=== PATIENT | male | born 1955 | race Caucasian/White ===

== ENCOUNTER 2020-11-20 02:28 | Day surgery (SDC) | payer MEDICARE, SELFPAY ==
[2020-11-13 14:05] VITALS: BMI 29.0
[2020-11-20 09:39] VITALS: BP 135/85; PULSE 67; RESP 18; TEMP 36.3; O2SAT 98; BMI 27.6
[2020-11-20] MEDS: LACTATED RINGERS 1,000 ML 150 ML IV CONT (09:59)
--- NOTE | 2020-11-20 09:59 | WPDANESEPPF ---
Anes - Initial Pre Proc Eval Procedure: Operation Date: 11/20/20 10:30 Proposed Procedures p Screening Colonoscopy - Yamil York MD Date/Time: 11/20/20 09:59 Surgeon: Yamil York MD Pre Op Diagnosis: neoplasm screening Patient Data Age: 64 Gender: M Height: 1.75 m Weight: 84.7 kg Last Vital Signs Temp 36.3 C L 11/20/20 09:39 Pulse 67 11/20/20 09:39 Resp 18 11/20/20 09:39 BP 135/85 11/20/20 09:39 Pulse Ox 98 11/20/20 09:39 Allergies Allergy/AdvReac Type Severity Reaction Status Date / Time No Known Allergies Allergy Verified 11/20/20 09:37 Home Medications Medication Instructions Recorded Confirmed Type sodium,potassium,mag sulfates See Rx Instructions .ROUTE 10/31/20 Rx [Suprep Bowel Prep Kit] .COMPLEX #1 ml allopurinol 300 mg PO DAILY 11/07/20 11/13/20 History ezetimibe 10 mg PO DAILY 11/07/20 11/13/20 History lisinopril 5 mg PO DAILY 11/07/20 11/13/20 History metoprolol succinate 75 mg PO DAILY 11/07/20 11/13/20 History pravastatin 10 mg PO EVERY OTHER DAY 11/07/20 11/13/20 History aspirin [Adult Low Dose Aspirin] 81 mg PO DAILY 11/13/20 11/13/20 History coQ10 (ubiquinol) 100 mg PO DAILY 11/13/20 11/13/20 History lycfhinp-ueo-YZ-lycopen-lutein 1 tablet PO DAILY 11/13/20 11/13/20 History [Centrum Silver Men] potassium chloride 10 meq PO DAILY 11/13/20 11/13/20 History Patient hx anesthesia problems: none Family hx anesthesia problems: none PMFSH Past Medical History Medical History (Updated 11/20/20 @ 10:02 by Jarvis Laughlin MD) CAD (coronary artery disease) HTN (hypertension) Overweight Surgical History Surgical History (Updated 11/20/20 @ 10:02 by Jarvis Laughlin MD) Hx of CABG Family History Family History Sibling Malignant neoplasm of prostate Family history of lung cancer Family history of malignant neoplasm of breast in first degree relative Other Diabetes mellitus Social History Social History Smoking packs per day: 1 Smoking cigarettes per day: 20.0 Years smoked: 15 Smoking pack-years: 15.00 Smoking status: Former smoker Tobacco type: cigarettes Alcohol intake: current Drinks per week: 12 Living arrangements: with family Spiritual care concerns: No Anes - Eval Final PreProcedure Day of Procedure 11/20/20 09:59 Patient weight: overweight Heart: regular rate and rhythm Lungs: clear to auscultation Airway: Mallampati scale class II Neurological: alert and oriented Last oral intake: >/= 8 hours ASA classification: III Emergent: no Anesthetic plan: proceed Anesthesia type and monitoring: general GIVS and standard monitoring Informed Consent: The patient's anesthetic plan and its attendant risks and benefits were discussed with the patient/family/POA. Questions were solicited and answers provided to the satisfaction of the patient/family/POA.
--- NOTE | 2020-11-20 10:05 | PM.HPGS ---
History of Present Illness History of Present Illness Consent: Risks, benefits, and alternatives have been discussed and questions answered. Patient agrees to proceed with procedure. Chief complaint: neoplasm screening Narrative: Elpidio Vasques is a 64 year old male with last colonoscopy 10 years ago Review of Systems Constitutional: Constitutional: Denies headache(s) and Denies weakness Eyes: Eyes: Denies blurry vision ENT: Reports Normal hearing present, Denies headache(s) and Denies neck pain Cardiovascular: Cardiovascular: Denies chest pain and Denies dyspnea Respiratory: Respiratory: Denies dyspnea Gastrointestinal: Gastrointestinal: Reports no additional gastrointestinal complaints Genitourinary: Genitourinary: Denies dysuria Musculoskeletal: Musculoskeletal: Denies neck pain Integumentary/Breasts: Skin/Breast: Denies dry skin Neurologic: Reports Normal hearing present, Denies headache(s) and Denies weakness Psychiatric: Psychiatric: Denies anxiety Endocrine: Endocrine: Denies change in body appearance Hematologic/Lymphatic: Hematologic/Lymphatic: Denies easy bleeding Allergic/Immunologic: Allergic/Immunologic: Denies urticaria PMF Past Medical History Medical History (Updated 11/20/20 @ 10:05 by Yamil York MD) CAD (coronary artery disease) Colon cancer screening HTN (hypertension) Overweight Surgical History Surgical History (Updated 11/20/20 @ 10:02 by Jarvis Laughlin MD) Hx of CABG Family History Family History Sibling Malignant neoplasm of prostate Family history of lung cancer Family history of malignant neoplasm of breast in first degree relative Other Diabetes mellitus Social History Social History Smoking packs per day: 1 Smoking cigarettes per day: 20.0 Years smoked: 15 Smoking pack-years: 15.00 Smoking status: Former smoker Tobacco type: cigarettes Alcohol intake: current Drinks per week: 12 Living arrangements: with family Spiritual care concerns: No Meds Home Medications and Allergies Home Medications Medication Instructions Recorded Confirmed Type sodium,potassium,mag sulfates See Rx Instructions .ROUTE 10/31/20 Rx [Suprep Bowel Prep Kit] .COMPLEX #1 ml allopurinol 300 mg PO DAILY 11/07/20 11/13/20 History ezetimibe 10 mg PO DAILY 11/07/20 11/13/20 History lisinopril 5 mg PO DAILY 11/07/20 11/13/20 History metoprolol succinate 75 mg PO DAILY 11/07/20 11/13/20 History pravastatin 10 mg PO EVERY OTHER DAY 11/07/20 11/13/20 History aspirin [Adult Low Dose Aspirin] 81 mg PO DAILY 11/13/20 11/13/20 History coQ10 (ubiquinol) 100 mg PO DAILY 11/13/20 11/13/20 History eredriwa-mbl-SJ-lycopen-lutein 1 tablet PO DAILY 11/13/20 11/13/20 History [Centrum Silver Men] potassium chloride 10 meq PO DAILY 11/13/20 11/13/20 History Allergies Allergy/AdvReac Type Severity Reaction Status Date / Time No Known Allergies Allergy Verified 11/20/20 09:37 Vital Signs Vital Signs - 24 hr 11/20/20 09:39 Temperature 97.3 F L Pulse Rate 67 Respiratory Rate 18 Blood Pressure 135/85 Pulse Oximetry 98 Exam Const: General: comfortable and no acute distress HENMT: General nose exam: Normal nares present Eyes: General: appearance normal, both eyes and all related structures Neck: Neck: no JVD Resp: Auscultation: clear to auscultation bilaterally Cardio: Rate: regular rate Rhythm: regular rhythm GI: Inspection: non-distended GI Palp: Yes Soft to palpation Skin: General skin exam: normal color Neuro: General: gait normal Speech: normal speech Extrem: General: normal to inspection Psych: Mental Status: mental status grossly normal Assessment and Plan Assessment and plan (1) Colon cancer screening: Code(s): Z12.11 - Encounter for screening for malignant neoplasm of colon Stat
[2020-11-20 10:21] VITALS: BP 88/54; PULSE 63; RESP 16; O2SAT 98
[2020-11-20 10:31] VITALS: BP 120/75; PULSE 59; RESP 18; O2SAT 99
[2020-11-20 10:41] VITALS: BP 123/79; PULSE 54; RESP 17; O2SAT 98
== END 2020-11-20 11:05 | disposition home or self-care (01) ==
PROVIDERS: PCP Internal Medicine; Visit Provider Internal Medicine Gastroenterology
PROC: 0DJD8ZZ Inspection of Lower Intestinal Tract, Via Natural or Artificial Opening Endoscopic (ICD-10-PCS; CPT 45378; principal; 2020-11-20 10:30)
DX: Z12.11 Encounter for screening for malignant neoplasm of colon (principal); K64.8 Other hemorrhoids; D12.2 Benign neoplasm of ascending colon; I25.10 Atherosclerotic heart disease of native coronary artery without angina pectoris; I10 Essential (primary) hypertension; Z87.891 Personal history of nicotine dependence; Z79.82 Long term (current) use of aspirin
CPT/HCPCS: 45380; 88305; J2704; J7120